=== PATIENT | male | born 1975 | race American Indian/Alaskan Native ===

== ENCOUNTER 2016-09-08 03:00 | Emergency (ER) | payer SELFPAY ==
[2016-09-08 03:17] VITALS: BMI 23.6
--- NOTE | 2016-09-08 03:29 | ED PDOC ---
HPI: Psych/Substance Abuse Time Seen by Provider: 09/08/16 03:06 Chief Complaint (Nursing): Psychiatric Evaluation Chief Complaint (Provider): crisis eval History Per: Patient, EMS Additional History Per: Patient, EMS Additional Complaint(s): 41 y/o male brought in by EMS for crisis eval. Patient states he got in to argument with his jose, and she called 911 stating he is not well and is threatening to harm himself. Patient calm upon arrival; denies suicidal/ homicidal ideations, acute medical complaints. Past Medical History Reviewed: Historical Data, Nursing Documentation, Vital Signs Vital Signs: Last Vital Signs Temp 98.1 F 09/08/16 03:17 Pulse 72 09/08/16 03:17 Resp 20 09/08/16 03:17 BP 152/110 H 09/08/16 03:17 Pulse Ox 100 09/08/16 03:17 - Medical History PMH: No Chronic Diseases - Surgical History Surgical History: No Surg Hx - Family History Family History: States: Unknown Family Hx - Home Medications Home Medications: Ambulatory Orders Medication Instructions Recorded No Known Home Med 09/08/16 - Allergies Allergies/Adverse Reactions: Allergies Allergy/AdvReac Type Severity Reaction Status Date / Time No Known Allergies Allergy Verified 09/08/16 03:16 Review of Systems ROS Statement: Except As Marked, All Systems Reviewed And Found Negative Physical Exam - Reviewed Nursing Documentation Reviewed: Yes Vital Signs Reviewed: Yes - Physical Exam Appears: Positive for: Well, Non-toxic, No Acute Distress Head Exam: Positive for: ATRAUMATIC, NORMAL INSPECTION, NORMOCEPHALIC Skin: Positive for: Normal Color Eye Exam: Positive for: Normal appearance ENT: Positive for: Normal ENT Inspection Cardiovascular/Chest: Positive for: Regular Rate, Rhythm Respiratory: Positive for: Normal Breath Sounds Gastrointestinal/Abdominal: Positive for: Normal Exam Back: Positive for: Normal Inspection Extremity: Positive for: Normal ROM Neurologic/Psych: Positive for: Alert, Oriented - ECG O2 Sat by Pulse Oximetry: 100 Disposition - Clinical Impression Clinical Impression: Adjustment disorder - Disposition Disposition: Transfer of Care Disposition Time: 06:00 Condition: STABLE Patient Signed Over To: Leeroy Luther Handoff Comments: pending final crisis dispo
--- NOTE | 2016-09-08 06:32 | ED PDOC ---
- ECG O2 Sat by Pulse Oximetry: 100 Medical Decision Making Medical Decision Makin Patient signed out to me from SHANA Slaughter pending crisis eval. [id number] Patient signed out to Dr. Medellin pending crisis eval. Scribe Attestation: Documented by Samia Kimball acting as a scribe for Leeroy Luther MD. Scribe Attestation: All medical record entries made by the Scribe were at my direction and personally dictated by me. I have reviewed the chart and agree that the record accurately reflects my personal performance of the history, physical exam, medical decision making, and the department course for this patient. I have also personally directed, reviewed, and agree with the discharge instructions and disposition. Disposition - Clinical Impression Clinical Impression: Adjustment disorder - POA Present On Arrival: None - Disposition Disposition: Transfer of Care Disposition Time: 07:00 Condition: STABLE Patient Signed Over To: Marco Medellin III Handoff Comments: Pending crisis eval
--- NOTE | 2016-09-08 07:17 | ED PDOC ---
- ECG O2 Sat by Pulse Oximetry: 100 Medical Decision Making Medical Decision Makin:00 Patient transferred over to al by Dr. Leeroy Luther pending crisis evaluation. 740am cleared by crisis/ psychiatrist for discharge. Cooperative in ED. Disposition Counseled Patient/Family Regarding: Studies Performed, Diagnosis, Need For Followup - Clinical Impression Clinical Impression: Adjustment disorder - POA Present On Arrival: None - Disposition Disposition: Routine/Home Disposition Time: 07:48 Condition: STABLE Additional Instructions: Return to ER for any concern for self. Instructions: Stress (ED), Suicide Prevention for Children and Adolescents (ED)
[2016-09-08 08:15] VITALS: BP 128/78; PULSE 75; RESP 19; TEMP 97.6; O2SAT 98
== END 2016-09-08 08:15 | disposition home or self-care (01) ==
LOC: H.ER 03:00
DX: F43.20 Adjustment disorder, unspecified (principal)

== ENCOUNTER 2016-09-19 08:26 | Emergency (ER) | payer SELFPAY ==
[2016-09-19 08:27] VITALS: BP 157/90; O2SAT 98; BMI 22.8
[2016-09-19 08:34] VITALS: PULSE 78; RESP 20; TEMP 98
--- NOTE | 2016-09-19 08:45 | ED PDOC ---
HPI: Psych/Substance Abuse Time Seen by Provider: 09/19/16 08:29 Chief Complaint (Nursing): Psychiatric Evaluation Chief Complaint (Provider): Psychiatric Evaluation History Per: Patient History/Exam Limitations: no limitations Onset/Duration Of Symptoms: Days Current Symptoms Are (Timing): Still Present Additional Complaint(s): 41 y/o male presents to the emergency via EMS for depression. Patient was seen here on 09/08/2016 after child and children left him. States he still feels sad that they had not returned. Denies suicidal ideation. Past Medical History Reviewed: Historical Data, Nursing Documentation, Vital Signs Vital Signs: Last Vital Signs Temp 98 F 09/19/16 08:31 Pulse 78 09/19/16 08:31 Resp 20 09/19/16 08:31 BP 157/90 H 09/19/16 08:26 Pulse Ox 98 09/19/16 08:31 - Medical History PMH: Denies: Diabetes, Hepatitis, HIV, HTN, Seizures, Sexually Transmitted Disease - Surgical History Surgical History: No Surg Hx - Family History Family History: States: Unknown Family Hx - Home Medications Home Medications: Ambulatory Orders Medication Instructions Recorded No Known Home Med 09/08/16 - Allergies Allergies/Adverse Reactions: Allergies Allergy/AdvReac Type Severity Reaction Status Date / Time No Known Allergies Allergy Verified 09/19/16 08:30 Review of Systems ROS Statement: Except As Marked, All Systems Reviewed And Found Negative Psych: Positive for: Depression. Negative for: Suicidal ideation Physical Exam - Reviewed Nursing Documentation Reviewed: Yes Vital Signs Reviewed: Yes - Physical Exam Appears: Positive for: Non-toxic, No Acute Distress Head Exam: Positive for: ATRAUMATIC, NORMAL INSPECTION, NORMOCEPHALIC Skin: Positive for: Normal Color, Warm, Dry Neck: Positive for: Normal, Supple Cardiovascular/Chest: Positive for: Regular Rate, Rhythm. Negative for: Murmur Respiratory: Positive for: Normal Breath Sounds. Negative for: Accessory Muscle Use, Respiratory Distress Gastrointestinal/Abdominal: Positive for: Normal Exam, Soft. Negative for: Tenderness Extremity: Positive for: Normal ROM. Negative for: Pedal Edema Neurologic/Psych: Positive for: Alert, Oriented - ECG O2 Sat by Pulse Oximetry: 98 (RA) Pulse Ox Interpretation: Normal Medical Decision Making Medical Decision Making: Time: 08:35 Initial impression: Depression Initial plan: --Crisis Evaluation As Ordered Scribe Attestation: Documented by Ana Guerra, acting as a scribe for Cosmo Deras MD. Provider Scribe Attestation: All medical record entries made by the Scribe were at my direction and personally dictated by me. I have reviewed the chart and agree that the record accurately reflects my personal performance of the history, physical exam, medical decision making, and the department course for this patient. I have also personally directed, reviewed, and agree with the discharge instructions and disposition. Disposition - Clinical Impression Clinical Impression: Adjustment disorder - Patient ED Disposition Is Patient to be Admitted: No Counseled Patient/Family Regarding: Diagnosis, Need For Followup - Disposition Referrals: Community Mental Health [Outside] Disposition: Routine/Home Disposition Time: 09:32 Condition: FAIR Instructions: Mood Disorders (ED) Forms: [employer] (Omani)
== END 2016-09-19 09:36 | disposition home or self-care (01) ==
LOC: H.ER 08:26
DX: F43.20 Adjustment disorder, unspecified (principal); F32.9 Major depressive disorder, single episode, unspecified

== ENCOUNTER 2016-09-23 06:24 | Inpatient (IN) | payer OTHER ==
[2016-09-23 06:24] VITALS: BMI 22.8
--- NOTE | 2016-09-23 07:39 | ED PDOC ---
HPI: Psych/Substance Abuse Time Seen by Provider: 09/23/16 07:08 Chief Complaint (Nursing): Psychiatric Evaluation Chief Complaint (Provider): Psychiatric Evaluation History Per: Patient History/Exam Limitations: no limitations Onset/Duration Of Symptoms: Days (3-4 days ago) Current Symptoms Are (Timing): Still Present Suicide/Self Injury Attempted (Context): Cut Wrists Additional History Per: EMS Additional Complaint(s): Armani Orozco is a 41 y/o male who was brought to the ED via EMS after walking to police station earlier today, and was found to have lacerations to both wrists. Patient states he did cut his wrists 3-4 days ago in a suicide attempt, but denies having suicidal or homicidal ideations within the past 48 hours. Reports he has no history of mental illness or chronic disease but has been told he has high blood pressure. Patient was seen here on 09/19/2016 and diagnosed with adjustment disorder. PMD: Unknown Past Medical History Reviewed: Historical Data, Nursing Documentation, Vital Signs Vital Signs: Last Vital Signs Temp 98.9 F 09/23/16 06:36 Pulse 112 H 09/23/16 06:36 Resp 18 09/23/16 06:36 BP 151/92 H 09/23/16 06:36 Pulse Ox 100 09/23/16 06:36 - Medical History PMH: HTN Denies: Diabetes, Hepatitis, HIV, Seizures, Sexually Transmitted Disease - Surgical History Surgical History: No Surg Hx - Family History Family History: States: Unknown Family Hx - Social History Ex-Smoker (has not smoked in the last 12 months): Yes Alcohol: < 2 Drinks/Day Drugs: Cannabis - Home Medications Home Medications: Ambulatory Orders Medication Instructions Recorded No Known Home Med 09/08/16 - Allergies Allergies/Adverse Reactions: Allergies Allergy/AdvReac Type Severity Reaction Status Date / Time No Known Allergies Allergy Verified 09/23/16 06:36 Review of Systems ROS Statement: Except As Marked, All Systems Reviewed And Found Negative Skin: Positive for: Lesions (Lacerations to bilateral wrists) Psych: Negative for: Suicidal ideation (or homicidal ideations) Physical Exam - Reviewed Nursing Documentation Reviewed: Yes Vital Signs Reviewed: Yes - Physical Exam Appears: Positive for: Non-toxic, No Acute Distress Head Exam: Positive for: ATRAUMATIC, NORMAL INSPECTION, NORMOCEPHALIC Skin: Positive for: Normal Color, Warm, Dry Eye Exam: Positive for: Normal appearance (Pupils 3 mm and round) Neck: Positive for: Normal, Painless ROM, Supple Cardiovascular/Chest: Positive for: Regular Rate, Rhythm. Negative for: Murmur Respiratory: Positive for: Normal Breath Sounds. Negative for: Accessory Muscle Use, Respiratory Distress Gastrointestinal/Abdominal: Positive for: Normal Exam, Soft. Negative for: Tenderness Back: Positive for: Normal Inspection. Negative for: Vertebral Tenderness Extremity: Positive for: Normal ROM, Other (Right wrist has linear laceration of 3-4 cm, left wrist with linear laceration 3 cm). Negative for: Pedal Edema Neurologic/Psych: Positive for: Alert, Oriented - Laboratory Results Result Diagrams: 09/23/16 08:00 09/23/16 08:00 - ECG O2 Sat by Pulse Oximetry: 100 (RA) Pulse Ox Interpretation: Normal Medical Decision Making Medical Decision Making: Time: 07:31 Initial Plan: --CBC --CMP --Urine drug screen --Alcohol serum --Urinalysis --Acetaminophen --Salicylate --Patient placed on 1:1 observation --Pending psychiatric evaluation Scribe Attestation: Documented by An Marni, acting as a scribe for Tracy Garza MD Provider Scribe Attestation: All medical record entries made by the Scribe were at my direction and personally dictated by me. I have reviewed the chart and agree that the record accurately reflects my personal performance of the history, physical exam, medical decision making, and the department course for this patient. I have also personally directed, reviewed, and agree with the discharge instructions and disposition. Disposition - Clinical Impression Clinical Impression: Depression - Patient ED Disposition Is Patient to be Admitted: Yes Doctor Will See Patient In The: Hospital Counseled Patient/Family Regarding: Diagnosis - Disposition Disposition: Transfer of Care Disposition Time: 11:10 Condition: FAIR
[2016-09-23 08:15] LABS: BASO % 0.9 % (0.0-2.0); EOS % 0.1 % (0.0-4.0); HEMOGLOBIN 13.1 g/dL (12.0-18.0); LYMPH # 0.5 K/uL (1.0-4.3); LYMPH % 13.4 % (20.0-40.0); MEAN CELL VOLUME 92.8 fl (80.0-94.0); MEAN CORPUSCULAR HEMOGLOBIN 31.3 pg (27.0-31.0); MEAN CORPUSCULAR HGB CONC 33.7 g/dL (33.0-37.0); MONO # 0.4 K/uL (0.0-0.8); MONO % 9.6 % (0.0-10.0); NEUT # 2.9 K/uL (1.8-7.0); RBC 4.2 Mil/uL (4.40-5.90); RED CELL DISTRIBUTION WIDTH 13.8 % (11.5-14.5); WHITE BLOOD COUNT 3.8 K/uL (4.8-10.8)
[2016-09-23 08:31] LABS: ALB/GLOB RATIO 1.6 (1.0-2.1); ALBUMIN 4.4 g/dL (3.5-5.0); ALT/SGPT 46 U/L (21-72); AST/SGOT 60 U/L (17-59); BLOOD UREA NITROGEN 12 mg/dl (9-20); CALCIUM 9.5 mg/dL (8.4-10.2); GFR AFRICAN-AMERICAN > 60; GFR NON-AFRICAN AMERICAN > 60
[2016-09-23 08:32] LABS: ACETAMINOPHEN < 10.0 ug/ml (10.0-30.0); SALICYLATE < 1.0 mg/dl
[2016-09-23 08:56] LABS: URINE AMORPHOUS SEDIMENT FEW /ul (<OCC); URINE BILIRUBIN NEGATIVE (NEGATIVE); URINE BLOOD NEGATIVE (NEGATIVE); URINE CLARITY SLIGHTY-CLOUDY (Clear); URINE COLOR YELLOW (YELLOW); URINE GLUCOSE (UA) NEG (Normal); URINE LEUKOCYTE ESTERASE NEG Leu/uL (Negative); URINE NITRATE NEGATIVE (NEGATIVE); URINE PROTEIN 100 mg/dL (NEGATIVE)
[2016-09-23 09:14] LABS: BARBITURATES, UR NEGATIVE (NEGATIVE); BENZODIAZEPINES, UR NEGATIVE (NEGATIVE); OPIATES, UR NEGATIVE (NEGATIVE); PHENCYCLIDINE, UR NEGATIVE (NEGATIVE)
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
[2016-09-23] MEDS ORDERED: Magnesium Hydroxide Susp 30 ml UD PO PRN (14:52)
[2016-09-23] MEDS ORDERED: DiphenhydrAMINE 50 mg/ml Inj IM PRN (14:52)
[2016-09-23] MEDS ORDERED: Alum-Mag Hydrox-Simethicone Susp (30 mL) PO PRN (14:52)
[2016-09-23 16:13] VITALS: O2SAT 100
--- NOTE | 2016-09-24 15:06 | CP.PCM.CON ---
History of Present Illness - History of Present Illness History of Present Illness: Pt is 41 yo M admitted to inpatient psychiatric unit for bizarre behavior and psychosis; he seems very reluctant to speak and mostly gives one word answers to questions. He denies any medical history and his only complaint is that he is here. He seems preoccupied with leaving the hospital. PMH: none, denies Allergies: NKDA Medications: none, denies Past surgical hx: none, denies Family Hx: denies stroke, HI, cancer, htn, diabetes in family Social Hx: former smoker, smoked 2-3 cig/day for a few years, quit 6 yrs ago, said he has quit for more time than he had smoked for. Occasional EtOH use > 1x/ week, occasional marijuana use, denies other illitic drugs or painkiller abuse. 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 Review of Systems: General: No fatigue, no night sweats, no chills. Skin: No lesions, no rashes, no changes in color. HEENT: No changes in vision, no sore throat, no changes in hearing. Cardiovascular: No palpitations, no chest pain, no dyspnea on exertion. Respiratory: No shortness of breath, no cough. GI: No abdominal pain, no nausea, no vomiting, no diarrhea, no constipation, no blood in the stool. : No changes in urination, no change in frequency or amount. Endocrine: No heat/cold intolerance. MSK: No generalized weakness. No joint pains. Neuro: No dizziness. Review of Systems - Review of Systems Review of Systems: please see HPI Past Patient History - Infectious Disease Hx of Infectious Diseases: None - Tetanus Immunizations Tetanus Immunization: Unknown - Past Medical History & Family History Past Medical History?: No - Past Social History Smoking Status: Former Smoker Alcohol: < 2 Drinks/Day Drugs: Cannabis - CARDIAC Hx Cardiac Disorders: No - PULMONARY Hx Respiratory Disorders: No Hx Tuberculosis: No - NEUROLOGICAL Hx Seizures: No - RENAL Hx Chronic Kidney Disease: No - ENDOCRINE/METABOLIC Hx Endocrine Disorders: No - HEMATOLOGICAL/ONCOLOGICAL Hx Blood Disorders: No Hx Human Immunodeficiency Virus (HIV): No - INTEGUMENTARY Hx Dermatological Problems: No - MUSCULOSKELETAL/RHEUMATOLOGICAL Hx Musculoskeletal Disorders: No - GASTROINTESTINAL Hx Gastrointestinal Disorders: No - GENITOURINARY/GYNECOLOGICAL Hx Genitourinary Disorders: No Hx Sexually Transmitted Disorders: No - PSYCHIATRIC Hx Substance Use: Yes (positive canibus) - SURGICAL HISTORY Hx Surgeries: No - ANESTHESIA Hx Anesthesia: No Meds Allergies/Adverse Reactions: Allergies Allergy/AdvReac Type Severity Reaction Status Date / Time No Known Allergies Allergy Verified 09/23/16 06:36 - Medications Medications: Current Medications Acetaminophen (Tylenol 325mg Tab) 650 mg PO Q4 PRN PRN Reason: Pain, moderate (4-7) Al Hydrox/Mg Hydrox/Simethicone (Maalox Plus 30 Ml) 30 ml PO Q4 PRN PRN Reason: Dyspepsia Diphenhydramine HCl (Benadryl) 50 mg IM Q6 PRN PRN Reason: Extrapyramidal S/S Unable PO Diphenhydramine HCl (Benadryl) 50 mg PO Q6 PRN PRN Reason: Extrapyramidal Symptoms Haloperidol (Haldol) 5 mg PO Q4 PRN PRN Reason: Agitation Haloperidol Lactate (Haldol) 5 mg IM Q4 PRN PRN Reason: Agitation, Unable to Take PO Lorazepam (Ativan) 2 mg IM Q4 PRN PRN Reason: Anxiety/Agitation,Unable PO Lorazepam (Ativan) 2 mg PO Q4 PRN PRN Reason: Anxiety/Agitation Magnesium Hydroxide (Milk Of Magnesia) 30 ml PO HS PRN PRN Reason: Constipation Physical Exam - Constitutional Appears: Agitated Additional comments: reluctant to talk, poor eye contact, one word answers - Head Exam Head Exam: NORMAL INSPECTION - Eye Exam Eye Exam: EOMI, Normal appearance, PERRL - ENT Exam ENT Exam: Mucous Membranes Moist - Neck Exam Neck exam: Positive for: Full Rom, Normal Inspection - Respiratory Exam Respiratory Exam: Clear to Auscultation Bilateral, NORMAL BREATHING PATTERN. absent: Wheezes, Respiratory Distress - Cardiovascular Exam Cardiovascular Exam: REGULAR RHYTHM, +S1, +S2 - GI/Abdominal Exam GI & Abdominal Exam: Normal Bowel Sounds, Soft - Extremities Exam Extremities exam: Positive for: full ROM - Neurological Exam Neurological exam: Alert, Normal Gait - Psychiatric Exam Psychiatric exam: Flat Affect - Skin Skin Exam: Dry, Normal Color, Warm Results - Vital Signs Recent Vital Signs: Last Vital Signs Temp 97.1 F L 09/24/16 09:15 Pulse 79 09/24/16 09:15 Resp 18 09/24/16 09:15 BP 130/85 09/24/16 09:15 Pulse Ox 100 09/23/16 16:12 - Labs Result Diagrams: 09/23/16 08:00 09/23/16 08:00 Assessment & Plan - Assessment and Plan (Free Text) Assessment: 41 yo M with no known medical history(pt denies) admitted to psychiatric inpatient unit for bizarre behavior and psychosis. Plan: 1. psychosis -management by primary inpatient psychiatric team -f/u TSH, RPR 2. elevated BP - continue to monitor
--- NOTE | 2016-09-24 15:10 | PCM.PYCHPN ---
Psychiatric Progress Note - Psychiatric Progress Note Patient seen today, length of contact: discussed with team Patient Chief Complaint: do you think something is wrong with me? Problems Identified/Issues Discussed: pt still wants to leave the hospital. he is still very paranoid and looks around , makes sure nobody is listening. states staff is talking louder about him than other pt's. is more willing to accept some of his symptoms are c/w paranoid thoughts and may not be fully reality based. has retracted 48hr notice letter and is currently agreeable to try risperdal. denies any suicidal thoughts currently. Medication Change: Yes Medical Record Reviewed: Yes Mental Status Examination - Cognitive Function Orientation: Person, Place, Situation, Time Memory: Intact Attention: WNL Concentration: WNL Association: WNL Fund of Knowledge: WNL Decription of patient's judgement and insights: improving - Mood Mood: Depressed, Anxious - Affect Affect: Blunted, Depressed - Speech Speech: Appropriate - Formal Thought Process Formal Thought Process: Paranoia - Suicidal Ideation Suicidal Ideation: No Plan: denies si/hi - Homicidal Ideation Homicidal Ideation: No Goal/Treatment Plan - Goal/Treatment Plan Need for Continued Stay: Remain at risks for inpatient hospitalization, Severe functional impairment Progress Toward Problem(s) and Goals/Treatment Plan: psychosis unspecified will start risperdal 0.5mg hs and titrate as tolerated. discussed r/b/se with pt and will provide written handouts disposition planning encourage participation in groups Estimated Date of D/C: 09/28/16
[2016-09-24] MEDS: Risperidone M tab 0.5MG PO SCH (21:22)
--- NOTE | 2016-09-25 11:42 | PCM.PYCHPN ---
Psychiatric Progress Note - Psychiatric Progress Note Patient seen today, length of contact: in treatment team Patient Chief Complaint: i feel more clear Problems Identified/Issues Discussed: pt states he is not having medication side effects. states the medications are helping him think more clearly. less paranoid and suspicious. Medication Change: No Medical Record Reviewed: Yes Mental Status Examination - Cognitive Function Orientation: Person, Place, Situation, Time Memory: Intact Attention: WNL Concentration: WNL Association: WNL Fund of Knowledge: WN Decription of patient's judgement and insights: improving - Mood Mood: Depressed, Anxious - Affect Affect: Blunted, Depressed - Speech Speech: Appropriate - Formal Thought Process Formal Thought Process: Paranoia - Suicidal Ideation Suicidal Ideation: No - Homicidal Ideation Homicidal Ideation: No Goal/Treatment Plan - Goal/Treatment Plan Need for Continued Stay: Remain at risks for inpatient hospitalization, Severe functional impairment Progress Toward Problem(s) and Goals/Treatment Plan: psychosis unspecified will continue risperdal 0.5mg hs and titrate as tolerated. discussed r/b/se with pt and will provide written handouts to the patient disposition planning- refer to outpt treatment. pt's has given consent to talk to his father encourage participation in groups Estimated Date of D/C: 09/28/16
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
[2016-09-25] MEDS: Risperidone M tab 0.5MG PO SCH (21:21)
--- NOTE | 2016-09-26 12:57 | PCM.PYCHPN ---
Psychiatric Progress Note - Psychiatric Progress Note Patient seen today, length of contact: discussed with team Patient Chief Complaint: i feel better Problems Identified/Issues Discussed: pt less paranoid, calm. thoughts are logical and pt expressing self well. he denies side effects from medication and is sleeping well at night. had a good visit with dad and sister per his report. Medication Change: No Medical Record Reviewed: Yes Mental Status Examination - Cognitive Function Orientation: Person, Place, Situation, Time Memory: Intact Attention: WNL Concentration: WNL Association: WNL Fund of Knowledge: WN Decription of patient's judgement and insights: fair - Mood Mood: Depressed, Anxious - Affect Affect: Blunted, Depressed - Speech Speech: Appropriate - Formal Thought Process Formal Thought Process: Paranoia - Suicidal Ideation Suicidal Ideation: No - Homicidal Ideation Homicidal Ideation: No Goal/Treatment Plan - Goal/Treatment Plan Need for Continued Stay: Remain at risks for inpatient hospitalization, Severe functional impairment Progress Toward Problem(s) and Goals/Treatment Plan: psychosis unspecified will continue risperdal 0.5mg hs disposition planning- refer to outpt treatment- pt agreeable to attend a php/ iop type of program. encourage participation in groups Estimated Date of D/C: 09/28/16
[2016-09-26] MEDS: Risperidone M tab 0.5MG PO SCH (21:32)
[2016-09-26] MEDS: Bacitracin 500 Units/gm Oint Foilpak UD TOP SCH (21:33)
--- NOTE | 2016-09-27 12:20 | PCM.PYCHPN ---
Psychiatric Progress Note - Psychiatric Progress Note Patient seen today, length of contact: discussed with team Patient Chief Complaint: i feel good Problems Identified/Issues Discussed: pt an active participant in groups. denies medication side effects. no aggression. thoughts more clear Medication Change: No Medical Record Reviewed: Yes Mental Status Examination - Cognitive Function Orientation: Person, Place, Situation, Time Memory: Intact Attention: WNL Concentration: WNL Association: WNL Fund of Knowledge: WN Decription of patient's judgement and insights: fair - Mood Mood: Neutral - Affect Affect: Broad - Speech Speech: Appropriate - Formal Thought Process Formal Thought Process: No Impairment - Suicidal Ideation Suicidal Ideation: No - Homicidal Ideation Homicidal Ideation: No Goal/Treatment Plan - Goal/Treatment Plan Need for Continued Stay: Remain at risks for inpatient hospitalization, Severe functional impairment Progress Toward Problem(s) and Goals/Treatment Plan: psychosis unspecified will continue risperdal 0.5mg hs disposition planning- refer to outpt treatment- pt agreeable to attend a php/ iop type of program. encourage participation in groups Estimated Date of D/C: 09/28/16
[2016-09-27] MEDS: Bacitracin 500 Units/gm Oint Foilpak UD TOP SCH ×2 (14:23→18:15)
[2016-09-27] MEDS: Risperidone M tab 0.5MG PO SCH (21:00)
[2016-09-28] MEDS: Bacitracin 500 Units/gm Oint Foilpak UD TOP SCH (08:31)
[2016-09-28 09:06] VITALS: BP 133/86; PULSE 86; RESP 18; TEMP 97.5
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
== END 2016-09-28 12:10 | disposition home or self-care (01) | DRG 885 ==
LOC: H.ER 06:24 → H.EROBSV 09:38 → H.ERHOLD 10:18 → OBSVTOIN 10:18 → H.PSYCH 11:43
PROVIDERS: ADMIT Psychiatry & Neurology Psychiatry; ATTEND Psychiatry & Neurology Psychiatry
PROC: GZHZZZZ Group Psychotherapy (ICD-10-PCS; principal; 2016-09-23)
PROC: GZ58ZZZ Individual Psychotherapy, Cognitive-Behavioral (ICD-10-PCS; 2016-09-23)
DX: F23 Brief psychotic disorder (principal); I10 Essential (primary) hypertension; F12.90 Cannabis use, unspecified, uncomplicated; S61.512A Laceration without foreign body of left wrist, initial encounter; S61.511A Laceration without foreign body of right wrist, initial encounter; X78.9XXA Intentional self-harm by unspecified sharp object, initial encounter; Z62.810 Personal history of physical and sexual abuse in childhood; Z87.891 Personal history of nicotine dependence; Z91.5 Personal history of self-harm; Y92.9 Unspecified place or not applicable

== ENCOUNTER 2017-08-29 12:51 | Emergency (ER) | payer OTHER ==
[2017-08-29 12:51] VITALS: BMI 22.8
[2017-08-29 13:45] VITALS: PULSE 83; RESP 16; TEMP 98.3
--- NOTE | 2017-08-29 14:20 | ED PDOC ---
HPI: Psych/Substance Abuse Time Seen by Provider: 08/29/17 13:29 Chief Complaint (Nursing): Psychiatric Evaluation Chief Complaint (Provider): Psych Eval History Per: Patient History/Exam Limitations: no limitations Additional Complaint(s): 42 year old male with a past medical history of mood disorder presents to the emergency department requesting a psychiatric evaluation. Patient reports that he has been having racing thoughts for the past 2 weeks. He further states that his therapist recently took him off of risperadal and he hasn't taken it since mid June. Patient states that he feels as though he needs to be back on the medication and is requesting a med refill. Patient is also reporting mild anxiety because he cannot settle his mind. Denies homicidal/suicidal ideation or visual/auditory hallucinations. Patient offers no physical complaints. Does not have PMD but therapist/psych is Yessenia Orji Past Medical History Reviewed: Historical Data, Nursing Documentation, Vital Signs Vital Signs: Last Vital Signs Temp 98.3 F 08/29/17 13:42 Pulse 83 08/29/17 13:42 Resp 16 08/29/17 13:42 BP 150/103 H 08/29/17 13:42 Pulse Ox 99 08/29/17 13:42 - Medical History PMH: HTN Other PMH: Mood Disorder - Surgical History Surgical History: No Surg Hx - Family History Family History: States: Unknown Family Hx - Social History Current smoker - smoking cessation education provided: No Alcohol: Social Drugs: Denies - Home Medications Home Medications: Ambulatory Orders Medication Instructions Recorded Risperidone [Risperdal] 0.5 mg PO HS #30 tablet 09/28/16 Risperidone [Risperdal] 1 mg PO DAILY #7 tablet 08/29/17 - Allergies Allergies/Adverse Reactions: Allergies Allergy/AdvReac Type Severity Reaction Status Date / Time No Known Allergies Allergy Verified 08/29/17 13:41 Review of Systems ROS Statement: Except As Marked, All Systems Reviewed And Found Negative Psych: Positive for: Anxiety, Other (Psychiatric Evaluation). Negative for: Suicidal ideation Physical Exam - Reviewed Nursing Documentation Reviewed: Yes Vital Signs Reviewed: Yes - Physical Exam Appears: Positive for: Well, Non-toxic, No Acute Distress Head Exam: Positive for: ATRAUMATIC, NORMOCEPHALIC Skin: Positive for: Normal Color, Warm, Dry. Negative for: Rash Eye Exam: Positive for: EOMI, PERRL. Negative for: Nystagmus ENT: Positive for: Other (Mucus membranes moist. Airway patent, (-) stridor. ) Neck: Positive for: Painless ROM, Supple Cardiovascular/Chest: Positive for: Regular Rate, Rhythm Respiratory: Positive for: Normal Breath Sounds (Respirations even and nonlabored, speaking in full sentences. ). Negative for: Respiratory Distress Gastrointestinal/Abdominal: Positive for: Soft. Negative for: Tenderness, Distended, Guarding Extremity: Positive for: Normal ROM. Negative for: Deformity Neurologic/Psych: Positive for: Alert, Oriented (x3), Mood/Affect (appropriate) , Gait (steady in ED). Negative for: Aphasia, Facial Droop - ECG O2 Sat by Pulse Oximetry: 99 (RA) Pulse Ox Interpretation: Normal Medical Decision Making Medical Decision Makin Initial Impression 42 year old male presenting for psychiatric evaluation, medication refill Initial Plan: * Crisis Evaluation * Reevaluation 1400 Crisis at bedside. 1415 Repeat BP: 143/92 Per crisis evaluation, patient to be discharged per Dr Perales with the diagnosis of anxiety. Patient to be supplied with Rx for Risperdal (7 day supply , 1mg PO QD). Follow up as arranged by crisis. On re-evaluation, patient offers no complaints. On exam, patient remains AAOx3, in no acute distress. Neck is supple, lungs CTA, cardiac RRR, neuro exam shows no focal findings. VSS, stable for discharge. Diagnostic results d/w the patient in great detail. Dx of anxiety d/w the patient. Based on history, exam and diagnostic results plan will be for discharge and outpatient psych follow up. Advised to follow up with primary care physician/psych in 1-2 days. Advised to use medication as prescribed. Return to the emergency room at any time for any new or worsening symptoms. Patient states he fully agrees with and understands discharge instructions. States that he agrees with the plan and disposition. Verbalized and repeated discharge instructions and plan. I have given the patient opportunity to ask any additional questions. Documented by Destiny Holloway acting as a scribe for Unique Cheung PA-C. All medical record entries made by the Scribe were at my direction and personally dictated by me. I have reviewed the chart and agree that the record accurately reflects my personal performance of the history, physical exam, medical decision making, and the department course for this patient. I have also personally directed, reviewed, and agree with the discharge instructions and disposition. Disposition - Clinical Impression Clinical Impression: Medication refill, Anxiety - Patient ED Disposition Is Patient to be Admitted: No Counseled Patient/Family Regarding: Studies Performed, Diagnosis, Need For Followup, Rx Given - Disposition Disposition: Routine/Home Disposition Time: 14:22 Condition: STABLE Additional Instructions: FOLLOW UP DIRECTED BY CRISIS. RETURN TO ED WITH ANY NEW OR WORSENING SYMPTOMS. Prescriptions: Risperidone [Risperdal] 1 mg PO DAILY #7 tablet Instructions: Anxiety, Adult (DC) Forms: [employer] (Lao) Print Language: GRENADIAN - POA Present On Arrival: None
[2017-08-29 14:30] VITALS: BP 143/92
[2017-08-29 14:38] VITALS: O2SAT 99
== END 2017-08-29 14:35 | disposition home or self-care (01) ==
LOC: H.ER 12:51
DX: R45.1 Restlessness and agitation (principal); F41.9 Anxiety disorder, unspecified; I10 Essential (primary) hypertension; Z76.0 Encounter for issue of repeat prescription; Z00.8 Encounter for other general examination